=== PATIENT | male | born 1970 | race Caucasian/White ===

== ENCOUNTER 2016-11-25 10:56 | Emergency (ER) | payer OTHER ==
[2016-11-25 11:41] LABS: Basophils % (Auto) 0.6 % (0.0-1.8); Eosinophils % (Auto) 2.1 % (0.0-4.3); Hematocrit 51.5 % (35.5-45.6); Hemoglobin 17.8 gm/dl (11.8-15.2); Mean Corpuscular HGB Conc 35 % (32-34); Mean Corpuscular Hemoglobin 32 pg (28-32); Mean Corpuscular Volume 94 fl (84-94); Red Blood Count 5.49 M/mm3 (3.65-5.03); Red Cell Distribution Width 13.1 % (13.2-15.2); White Blood Count 6.1 K/mm3 (4.5-11.0)
[2016-11-25 11:47] LABS: Platelet Count 84 K/mm3 (140-440)
[2016-11-25 12:01] LABS: Alanine Aminotransferase 73 units/L (7-56); Albumin 3.8 g/dL (3.9-5); Albumin/Globulin Ratio 0.9 %; Alkaline Phosphatase 111 units/L (35-129); Anion Gap 14 mmol/L; Bilirubin,Total 1.7 mg/dL (0.1-1.2); Blood Urea Nitrogen 9 mg/dL (9-20); Calcium 8.8 mg/dL (8.4-10.2); Carbon Dioxide 24 mmol/L (22-30); Chloride 103.4 mmol/L (98-107); Glucose 135 mg/dL (75-100); Lipase 31 units/L (13-60); Potassium 3.6 mmol/L (3.6-5.0); Sodium 138 mmol/L (137-145); Total Protein 7.9 g/dL (6.3-8.2)
[2016-11-25 14:01] VITALS: BP 184/102
--- NOTE | 2016-11-25 14:17 | Emergency Department Report ---
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 He is previously unknown to me. He presents to the ER with abdominal pushing and discomfort for the past 6-7 years. It is primarily in the right upper quadrant. It does not radiate anywhere. No nausea , vomiting or diarrhea. No chest pain or shortness of breath. No testicular pain. No irritative or obstructive urinary symptoms. Symptoms have exacerbating or relieving factors. They're not acutely worsen today. He came in because his mother wanted him to come in today. Patient admits to recreationally consuming alcohol. -: year(s) Location: abdomen Radiation: non-radiation Severity scale (0 -10): 0 Quality: other (per hpi) Consistency: intermittent Improves with: none Worsens with: none Associated Symptoms: denies: confusion, chest pain, cough, diaphoresis, fever/ chills, headaches, loss of appetite, malaise, nausea/vomiting, rash, seizure, shortness of breath, syncope, weakness - Related Data Allergies Allergy/AdvReac Type Severity Reaction Status Date / Time No Known Allergies Allergy Unverified 11/25/16 11:15 ED Review of Systems ROS: Stated complaint: HERNIA PAIN Other details as noted in HPI Constitutional: denies: malaise Eyes: denies: vision change ENT: denies: epistaxis Respiratory: denies: cough Cardiovascular: denies: chest pain Gastrointestinal: denies: nausea, vomiting, diarrhea, constipation, hematemesis , melena Genitourinary: denies: urgency, dysuria Musculoskeletal: denies: back pain Skin: denies: rash, lesions Neurological: denies: headache, weakness Psychiatric: denies: anxiety ED Past Medical Hx - Past Medical History Hx Hypertension: Yes Hx CVA: Yes ("SMALL STROKE" 2003) Hx Diabetes: Yes Hx Psychiatric Treatment: Yes (ANXIETY) Hx Asthma: Yes (CHILD) Additional medical history: HERNIA. HIGH CHOLESTEROL - Surgical History Additional Surgical History: TONSILLECTOMY. LEFT ELBOW - Social History Smoking Status: Never Smoker Substance Use Type: Alcohol ED Physical Exam - General Limitations: Language Barrier General appearance: alert, in no apparent distress - Head Head exam: Present: atraumatic, normocephalic - Eye Eye exam: Present: normal appearance, EOMI. Absent: nystagmus - ENT ENT exam: Present: normal exam, normal orophraynx, mucous membranes moist, normal external ear exam - Neck Neck exam: Present: normal inspection, full ROM. Absent: tenderness, meningismus - Respiratory Respiratory exam: Present: normal lung sounds bilaterally. Absent: respiratory distress, wheezes, rales, rhonchi, stridor, chest wall tenderness, accessory muscle use, decreased breath sounds, prolonged expiratory - Cardiovascular Cardiovascular Exam: Present: regular rate, normal rhythm, normal heart sounds. Absent: bradycardia, tachycardia, irregular rhythm, systolic murmur, diastolic murmur, rubs, gallop - GI/Abdominal GI/Abdominal exam: Present: soft, normal bowel sounds. Absent: distended, tenderness, guarding, rebound, rigid, pulsatile mass - Rectal Rectal exam: Present: deferred - Extremities Exam Extremities exam: Present: normal inspection, full ROM, normal capillary refill. Absent: tenderness, pedal edema, joint swelling, calf tenderness - Back Exam Back exam: Present: normal inspection, full ROM. Absent: tenderness, CVA tenderness (R), CVA tenderness (L), muscle spasm, paraspinal tenderness, vertebral tenderness - Neurological Exam Neurological exam: Present: alert, normal gait, other (Extraocular movements intact. Tongue midline. No facial droop. Facial sensation intact to light touch in the V1, V2, V3 distribution bilaterally. 5 and 5 strength in 4 extremities.. Sensation is intact to light touch in 4 extremities.). Absent: motor sensory deficit - Psychiatric Psychiatric exam: Present: normal affect, normal mood - Skin Skin exam: Present: warm, other (on the anterior abdominal wall, there are areas of hyperpigmentation, there is no active cellulitis, redness, pus, streaking or crepitus.) ED Course Vital Signs 11/25/16 11/25/16 11:00 14:00 Temperature 98.2 F Pulse Rate 93 H 90 Respiratory 19 18 Rate Blood Pressure 168/110 Blood Pressure 184/102 [Left] O2 Sat by Pulse 100 99 Oximetry - Reevaluation(s) Reevaluation #1: 11/25/16 14:15 Differential diagnosis: GERD, gastritis, pancreatitis, biliary colic, hepatitis , chronic abdominal discomfort Assessment and plan: 45-year-old male with reported history of years of abdominal pushing in the right upper quadrant. He is afebrile with reassuring vital signs, with absolutely no abdominal tenderness, rebound, guarding. There is a negative Rivero sign. He is tolerating liquid feeds. Nonspecific elevation in liver function tests are noted, patient is a recreational alcoholic. Given lack of fever, lack of tenderness, chronicity of symptoms, I don't believe he requires emergent imaging from the perspective of the emergency room. He is instructed using a online program coordinator to discontinue alcohol consumption, refrain from acetaminophen consumption, and to closely follow up with an outpatient primary care doctor for elevated blood pressure and nonspecific transaminitis. He was given discharge instructions with a online program coordinator, and counseled to closely follow up with outpatient primary care. Reevaluation #2: 11/25/16 14:19 Elevated blood pressure is appreciated. This is incidental, and asymptomatic. The patient is instructed to closely follow up with an outpatient primary care doctor for this. ED Medical Decision Making - Lab Data Result diagrams: 11/25/16 11:27 11/25/16 11:27 Vital Signs 11/25/16 11/25/16 11:00 14:00 Temperature 98.2 F Pulse Rate 93 H 90 Respiratory 19 18 Rate Blood Pressure 168/110 Blood Pressure 184/102 [Left] O2 Sat by Pulse 100 99 Oximetry Lab Results 11/25/16 11/25/16 11/25/16 Range/Units 11:12 11:27 11:27 WBC 6.1 (4.5-11.0) K/mm3 RBC 5.49 H (3.65-5.03) M/mm3 Hgb 17.8 H (11.8-15.2) gm/dl Hct 51.5 H (35.5-45.6) % MCV 94 (84-94) fl MCH 32 (28-32) pg MCHC 35 H (32-34) % RDW 13.1 L (13.2-15.2) % Plt Count 84 L (140-440) K/mm3 Lymph % (Auto) 21.5 (13.4-35.0) % [place] % (Auto) 8.0 H (0.0-7.3) % Eos % (Auto) 2.1 (0.0-4.3) % Baso % (Auto) 0.6 (0.0-1.8) % Lymph # 1.3 (1.2-5.4) K/mm3 [place] # 0.5 (0.0-0.8) K/mm3 Eos # 0.1 (0.0-0.4) K/mm3 Baso # 0.0 (0.0-0.1) K/mm3 Seg Neutrophils % 67.8 (40.0-70.0) % Seg Neutrophils # 4.2 (1.8-7.7) K/mm3 Sodium 138 (137-145) mmol/L Potassium 3.6 (3.6-5.0) mmol/L Chloride 103.4 (98-107) mmol/L Carbon Dioxide 24 (22-30) mmol/L Anion Gap 14 mmol/L BUN 9 (9-20) mg/dL Creatinine 0.6 L (0.8-1.5) mg/dL Estimated GFR > 60 ml/min BUN/Creatinine Ratio 15.00 % Glucose 135 H (75-100) mg/dL POC Glucose 110 H (70-105) Calcium 8.8 (8.4-10.2) mg/dL Total Bilirubin 1.7 H (0.1-1.2) mg/dL AST 78 H (5-40) units/L ALT 73 H (7-56) units/L Alkaline Phosphatase 111 (35-129) units/L Total Protein 7.9 (6.3-8.2) g/dL Albumin 3.8 L (3.9-5) g/dL Albumin/Globulin Ratio 0.9 % Lipase 31 (13-60) units/L Critical care attestation.: If time is entered above; I have spent that time in minutes in the direct care of this critically ill patient, excluding procedure time. ED Disposition Clinical Impression: Elevated blood pressure, Transaminitis Disposition: DISCHARGED TO HOME OR SELFCARE Is pt being admited?: No Does the pt Need Aspirin: No Condition: Stable Instructions: Hypertension (ED) Additional Instructions: Follow-up with a primary care doctor within the next 2-3 weeks. Laboratory studies indicated nonspecific elevation in liver function tests. Do not consume alcohol, or acetaminophen. Dr. Frausto is a local primary care doctor. [facility] is a local medical clinic. In addition, blood pressure was elevated. This should be followed up by a primary care doctor within the recommended timeframe. Long-term complications of elevated blood pressure include stroke, heart attack, disability, , paralysis, permanent loss of quality of life. Therefore, it is very important to follow-up with an outpatient primary care doctor to further evaluate, manage and treat her elevated blood pressure. Return to the ER right away with new pain, worsened pain, migration of pain, fevers or chills, intractable nausea or vomiting, inability to tolerate liquid feeds, new, worsening or different symptoms. Seguir con un mdico de atencin primaria dentro de las prximas 2-3 semanas. Los estudios de laboratorio indicaron patience elevacin inespecfica en las pruebas de funcin heptica. No consuma alcohol o acetaminofeno. El Dr. Frausto es un mdico local de atencin primaria. La clnica del lado apurva es patience clnica mdica local. Volver a la urgencia con dolor nuevo, dolor agravado, migracin de dolor, fiebre o escalofros, nuseas o vmitos intratables, incapacidad para tolerar alimentos lquidos, sntomas nuevos, empeorados o diferentes. Adems, la presin arterial fue elevada. [place] debe ser seguido por un mdico de atencin primaria dentro del plazo recomendado. Las complicaciones a marty plazo de la presin arterial elevada incluyen accidente cerebrovascular, ataque al corazn, discapacidad, muerte, parlisis, prdida permanente de la calidad de wilbert. Por lo tanto, es muy importante el seguimiento con un mdico ambulatorio de atencin primaria para evaluar, manejar y tratar fleming presin arterial elevada. Referrals: PRIMARY CAREMD [Primary Care Provider] - 3-5 Days KAUSHIK FRAUSTO MD [Staff Physician] - 3-5 Days [facility] [Provider Group] - 3-5 Days
[2016-11-25 14:22] LABS: Bacteria,Urine 1+ /HPF (Negative); Bilirubin,Urine NEG (Negative); Blood,Urine NEG (Negative); Ketones,Urine NEG (Negative); Leukocyte Esterase,Urine NEG (Negative); Mucus,Urine 2+ /HPF; Nitrite,Urine NEG (Negative); Protein,Urine <15 mg/dL mg/dL (Negative); WBC,Urine < 1.0 /HPF (0.0-6.0)
== END 2016-11-25 14:53 | disposition home or self-care (01) ==
LOC: ED 10:56
DX: I10 Essential (primary) hypertension (principal); R74.0 Nonspecific elevation of levels of transaminase and lactic acid dehydrogenase [LDH]; I63.9 Cerebral infarction, unspecified; E11.9 Type 2 diabetes mellitus without complications; F41.9 Anxiety disorder, unspecified; J45.909 Unspecified asthma, uncomplicated; E78.00 Pure hypercholesterolemia, unspecified
CPT/HCPCS: 36415; 80053; 81001; 82962; 83690; 85025; 99283

== ENCOUNTER 2020-10-07 10:08 | Inpatient (IN) | payer OTHER ==
[2020-10-07] MEDS ORDERED: oxyCODONE /ACETAMINOPHEN 5-325MG TAB PO ONE (10:36)
[2020-10-07] MEDS ORDERED: SODIUM CHLORIDE 0.9% 1000 ML 1,000 ML IV ONE (10:36)
[2020-10-07] MEDS ORDERED: ONDANSETRON 4 MG ODT TAB PO ONE (10:36)
--- NOTE | 2020-10-07 10:53 | Emergency Department Report ---
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 he states he has pain in his calf. he denies being bit by anything, injury, or scratches to the leg. he denies any recent travel or surgery. he denies any CP or SOB. he states that two days ago he ate from a portuguese restaurant and later that night had approximately 6 episodes of vomiting. he states the vomiting has completely resolved. he denies any diarrh ea, abd pain, fever, hematochezia, hematemesis, melana. PMHx HTN and DM. no allergies to meds - Related Data Allergies Allergy/AdvReac Type Severity Reaction Status Date / Time No Known Allergies Allergy Unverified 11/25/16 11:15 ED Review of Systems Comment: All other systems reviewed and negative ED Past Medical Hx - Past Medical History Hx Hypertension: Yes Hx CVA: Yes ("SMALL STROKE" 2003) Hx Diabetes: Yes Hx Psychiatric Treatment: Yes (ANXIETY) Hx Asthma: Yes (CHILD) Additional medical history: HERNIA. HIGH CHOLESTEROL - Surgical History Additional Surgical History: TONSILLECTOMY. LEFT ELBOW - Social History Smoking Status: Never Smoker Substance Use Type: Alcohol ED Physical Exam - General Limitations: No Limitations General appearance: alert, in no apparent distress - Head Head exam: Present: atraumatic, normocephalic - Eye Eye exam: Present: normal appearance - ENT ENT exam: Present: mucous membranes moist - Respiratory Respiratory exam: Present: normal lung sounds bilaterally. Absent: respiratory distress, wheezes, rales, rhonchi, stridor, chest wall tenderness, accessory muscle use, decreased breath sounds, prolonged expiratory - Cardiovascular Cardiovascular Exam: Present: normal rhythm, tachycardia, normal heart sounds. Absent: systolic murmur, diastolic murmur, rubs, gallop - Neurological Exam Neurological exam: Present: alert, oriented X3 - Psychiatric Psychiatric exam: Present: normal affect, normal mood - Skin Skin exam: Present: warm, dry, other (there is erythema, edema and increased warmth present to the RLE, it invovles the right crooks, right calf and stops at t he ankle, there is a small streak of erythema extending up to the upper thigh, 2+ distal pulses, sensation intact, no obvious wounds) ED Course - Reevaluation(s) Reevaluation #1: 10/07/20 12:21 called US regarding delay in US [place] [facility] is going to take patient - Consultations Consultation #1: 10/07/20 12:47 Dr. Crandall, ER attending spoke with Dr. Zaidi, hospitalist regarding patient, Dr Zaidi will evaluate pt in the ED ED Medical Decision Making - Lab Data Result diagrams: 10/07/20 10:55 10/07/20 10:55 Lab Results 10/07/20 10/07/20 10/07/20 Range/Units 10:55 10:55 10:55 WBC 14.4 H (4.5-11.0) K/mm3 RBC 5.05 H (3.65-5.03) M/mm3 Hgb 16.9 H (11.8-15.2) gm/dl Hct 47.7 H (35.5-45.6) % MCV 94 (84-94) fl MCH 34 H (28-32) pg MCHC 35 H (32-34) % RDW 12.8 L (13.2-15.2) % Plt Count 62 L (140-440) K/mm3 Lymph % (Auto) 7.1 L (13.4-35.0) % [place] % (Auto) 10.9 H (0.0-7.3) % Eos % (Auto) 0.0 (0.0-4.3) % Baso % (Auto) 0.3 (0.0-1.8) % Lymph # (Auto) 1.0 L (1.2-5.4) K/mm3 [place] # (Auto) 1.6 H (0.0-0.8) K/mm3 Eos # (Auto) 0.0 (0.0-0.4) K/mm3 Baso # (Auto) 0.0 (0.0-0.1) K/mm3 Seg Neutrophils % 81.7 H (40.0-70.0) % Seg Neutrophils # 11.8 H (1.8-7.7) K/mm3 Sodium 129 L (137-145) mmol/L Potassium 3.2 L (3.6-5.0) mmol/L Chloride 98.2 (98-107) mmol/L Carbon Dioxide 22 (22-30) mmol/L Anion Gap 12 mmol/L BUN 12 (9-20) mg/dL Creatinine 0.6 L (0.8-1.3) mg/dL Estimated GFR > 60 ml/min BUN/Creatinine Ratio 20 % Glucose 188 H (75-100) mg/dL Lactic Acid 2.50 H* (0.7-2.0) mmol/L Calcium 8.2 L (8.4-10.2) mg/dL Total Bilirubin 2.70 H (0.1-1.2) mg/dL AST 66 H (5-40) units/L ALT 58 H (7-56) units/L Alkaline Phosphatase 79 (35-129) units/L Total Protein 7.1 (6.3-8.2) g/dL Albumin 3.3 L (3.9-5) g/dL Albumin/Globulin Ratio 0.9 % - Radiology Data Radiology results: report reviewed Ordering Physician: FELICITA CHAVEZ Date of Service: 10/07/20 Procedure(s): VL venous duplex LE RT Accession Number(s): [id number] cc: FELICITA CHAVEZ DUPLEX DOPPLER LOWER EXTREMITY VEINS, RIGHT INDICATION / CLINICAL INFORMATION: RLE edema, erythema, pain. TECHNIQUE: Duplex doppler imaging was performed through the veins of the right lower extremity using venous compression and other maneuvers. COMPARISON: None available. FINDINGS: RIGHT COMMON FEMORAL VEIN: Negative. RIGHT FEMORAL VEIN: Negative. RIGHT POPLITEAL VEIN: Negative. RIGHT CALF VEINS: Negative. ADDITIONAL FINDINGS: None. IMPRESSION: 1. No sonographic evidence for DVT in the right lower extremity. Signer Name: Kate Ross MD Signed: 10/07/2020 12:40 PM Workstation Name: [id number] Transcribed By: RH Dictated By: KATE ROSS III Electronically Authenticated By: KATE ROSS III Signed Date/Time: 10/07/20 1240 DD/ 1239 TD/TT: ED Disposition Clinical Impression: Lactic acidosis, Hyponatremia, Hypokalemia, Thrombocytopenia Cellulitis Qualifiers: Site of cellulitis: extremity Site of cellulitis of extremity: lower extremity Laterality: right Qualified Code(s): L03.115 - Cellulitis of right lower limb Leukocytosis Qualifiers: Leukocytosis type: unspecified Qualified Code(s): D72.829 - Elevated white bl ood cell count, unspecified Disposition: OP ADMIT IP TO THIS HOSP Is pt being admited?: Yes Does the pt Need Aspirin: No Condition: Fair Referrals: PRIMARY CARE, [Primary Care Provider] - 3-5 Days Time of Disposition: 12:48 Print Language: LUX[place]BOURGISH <ALAN CRANDALL - Last Filed: 10/07/20 13:15> ED Review of Systems ROS: Stated complaint: VOMITING Other details as noted in HPI ED Course Vital Signs 10/07/20 10:14 Temperature 99.4 F Pulse Rate 109 H Respiratory 20 Rate Blood Pressure 147/92 O2 Sat by Pulse 96 Oximetry ED Medical Decision Making - Lab Data Result diagrams: 10/07/20 10:55 10/07/20 10:55 - Medical Decision Making I also directly examined and evaluated patient in ED. Right leg with confluent right pink cellulitic rash to the lower leg below the knee sparing the foot. 2+ DP pulse. Streaking of cellulitic rash of the medial thigh. Patient has elevated heart rate, leukocytosis, elevated lactic acid and is immunocompromise due to diabetes. Patient also has mild hypokalemia and hyponatremia. Patient received 1 dose of IV vancomycin, 30 mL/kg bolus of normal saline, and p.o. potassium. No crepitus on examination. DVT study negative. Case discussed with Dr. Zaidi hospitalist for admission Patient is also noted to have thrombocytopenia. Patient has chronic thrombocytopenia with a platelet count in the 80 as per previous chart previous medical record Critical care attestation.: If time is entered above; I have spent that time in minutes in the direct care of this critically ill patient, excluding procedure time.
[2020-10-07] MEDS ORDERED: VANCOMYCIN PHARMACY TO DOSE IV SCH (11:00)
[2020-10-07 11:23] LABS: Basophils % (Auto) 0.3 % (0.0-1.8); Lymphocytes % (Auto) 7.1 % (13.4-35.0); Mean Corpuscular HGB Conc 35 % (32-34); Mean Corpuscular Volume 94 fl (84-94); Monocytes # (Auto) 1.6 K/mm3 (0.0-0.8); Monocytes % (Auto) 10.9 % (0.0-7.3); Red Blood Count 5.05 M/mm3 (3.65-5.03); Red Cell Distribution Width 12.8 % (13.2-15.2)
[2020-10-07 11:24] LABS: Hematocrit 47.7 % (35.5-45.6); Hemoglobin 16.9 gm/dl (11.8-15.2)
[2020-10-07 11:25] LABS: Platelet Count 62 K/mm3 (140-440)
[2020-10-07] MEDS ORDERED: VANCOMYCIN 2,000 MG in SODIUM CHLORIDE 0.9% 500 ML 500 ML IV ONE (11:30)
[2020-10-07] MEDS ORDERED: SODIUM CHLORIDE 0.9% 1000 ML IV SOLN IV ONE (11:42)
[2020-10-07 11:53] LABS: Alanine Aminotransferase 58 units/L (7-56); Albumin 3.3 g/dL (3.9-5); BUN/Creatinine Ratio 20; Blood Urea Nitrogen 12 mg/dL (9-20); Calcium 8.2 mg/dL (8.4-10.2); Hemolysis Index 8
[2020-10-07] MEDS ORDERED: POTASSIUM CHLORIDE ER 20 MEQ TAB PO ONE (12:13)
--- NOTE | 2020-10-07 12:44 | Vascular Lab Report ---
DUPLEX DOPPLER LOWER EXTREMITY VEINS, RIGHT INDICATION / CLINICAL INFORMATION: RLE edema, erythema, pain. TECHNIQUE: Duplex doppler imaging was performed through the veins of the right lower extremity using venous comp ression and other maneuvers. COMPARISON: None available. FINDINGS: RIGHT COMMON FEMORAL VEIN: Negative. RIGHT FEMORAL VEIN: Negative. RIGHT POPLITEAL VEIN: Negative. RIGHT CALF VEINS: Negative. ADDITIONAL FINDINGS: None. IMPRESSION: 1. No sonographic evidence for DVT in the right lower extremity. Signer Name: Bakari Ross MD Signed: 10/07/2020 12:40 PM Workstation Name: [id number]
--- NOTE | 2020-10-07 13:12 | History and Physical Report ---
History of Present Illness Chief complaint: My leg is red, and it hurts History of present illness: 49 YO Male with DM, CVA, Anxiety, HLD, Obesity presents to ED for evaluation. Pt reports "my leg is red". Pt states that he has experienced redness and pain to his right lower leg over the past 1 day with persistent symptoms over the same timeframe. Patient transported to [facility] via private vehicle for further care and evaluation of the aforementioned symptoms. The patient was seen and evaluated in the emergency department. All lab and imaging studies reviewed. Patient found to have right lower extremity cellulitis complicated by systemic inflammatory response syndrome. Patient placed in observation status and admitted to medical floor. Patient treated with IV antibiotic therapy. Patient denies fever, chills, chest pain, palpitation, productive cough, skin rash, recent ill contacts, trauma, prolonged travel/immobility, individual/family history of DVT/PE/bleeding/blood clotting disorders. No prior admission for review. No medication listed at time of admission for reconciliation. Past History Past Medical History: diabetes, hyperlipidemia, stroke, other (See HPI) Past Surgical History: tonsillectomy, Other (Left elbow surgery) Social history: Family history: diabetes, hypertension Medications and Allergies Allergies Allergy/AdvReac Type Severity Reaction Status Date / Time No Known Allergies Allergy Unverified 11/25/16 11:15 Active Meds: Active Medications Acetaminophen (Acetaminophen 325 Mg Tab) 650 mg PO Q4H PRN PRN Reason: Pain MILD(1-3)/Fever >100.5/HARPER Vancomycin HCl 2,000 mg/ (Sodium Chloride) 540 mls @ 250 mls/hr IV ONCE ONE Stop: 10/07/20 13:39 Last Admin: 10/07/20 11:50 Dose: 250 mls/hr Documented by: Vancomycin HCl 1,500 mg/ (Sodium Chloride) 530 mls @ 333.333 mls/hr IV Q12H RL Ondansetron HCl (Ondansetron 4 Mg/2 Ml Inj) 4 mg IV Q8H PRN PRN Reason: Nausea And Vomiting Sodium Chloride (Sodium Chloride 0.9% 10 Ml Flush Syringe) 10 ml IV BID RL Sodium Chloride (Sodium Chloride 0.9% 10 Ml Flush Syringe) 10 ml IV PRN PRN PRN Reason: LINE FLUSH Review of Systems Constitutional: no weight loss, no fever, no sweats Ears, nose, mouth and throat: no ear pain, no ear discharge, no decreased hea ring, no nasal congestion, no sinus pressure Cardiovascular: no chest pain, no palpitations, no rapid/irregular heart beat, no edema, no syncope Respiratory: no cough, no dyspnea on exertion Gastrointestinal: no abdominal pain, no vomiting, no diarrhea, no constipation, no change in bowel habits, no hematemesis Genitourinary Male: no dysuria, no hematuria, no flank pain, no urinary frequency, no urinary hesitancy, no erectile dysfunction Rectal: no pain, no incontinence, no bleeding Musculoskeletal: no shooting arm pain, no arm numbness/tingling, no low back pain, no shooting leg pain Integumentary: rash, other (Right lower extremity) Neurological: no transient paralysis, no weakness, no parathesias, no tingling, no seizures, no syncope Psychiatric: no anxiety, no change in sleep habits, no sleep disturbances, no hypersomnia, no change in libido, no suicidal ideation, no disorientation, no hallucinations Endocrine: no cold intolerance, no polyphagia, no excessive thirst, no polydipsia, no nocturia, no excessive sweating Hematologic/Lymphatic: no easy bruising, no easy bleeding Allergic/Immunologic: no urticaria, no wheezing Exam - Constitutional Vitals: Temp Pulse Resp BP Pulse Ox 99.4 F 109 H 20 147/92 96 10/07/20 10:14 10/07/20 10:14 10/07/20 10:14 10/07/20 10:14 10/07/20 10:14 General appearance: Present: mild distress - EENT Eyes: Present: PERRL ENT: hearing intact, clear oral mucosa - Neck Neck: Present: supple, normal ROM - Respiratory Respiratory effort: normal Respiratory: bilateral: CTA - Cardiovascular Heart Sounds: Present: S1 & S2. Absent: rub, click - Extremities Extremities: pulses symmetrical Extremity abnormal: erythema, other (Right lower extremity, no crepitus, no fluctuance,) Peripheral Pulses: within normal limits - Abdominal General gastrointestinal: Present: soft, non-tender, non-distended, normal bowel sounds Male genitourinary: Present: normal - Integumentary Integumentary: Present: clear, warm, dry - Musculoskeletal Musculoskeletal: gait normal, strength equal bilaterally - Psychiatric Psychiatric: appropriate mood/affect, intact judgment & insight - Neurologic Neurologic: CNII-XII intact, moves all extremities Results - Labs CBC & Chem 7: 10/07/20 10:55 10/07/20 10:55 Labs: Abnormal lab results 10/07/20 10/07/20 10/07/20 Range/Units 10:55 10:55 10:55 WBC 14.4 H (4.5-11.0) K/mm3 RBC 5.05 H (3.65-5.03) M/mm3 Hgb 16.9 H (11.8-15.2) gm/dl Hct 47.7 H (35.5-45.6) % MCH 34 H (28-32) pg MCHC 35 H (32-34) % RDW 12.8 L (13.2-15.2) % Plt Count 62 L (140-440) K/mm3 Lymph % (Auto) 7.1 L (13.4-35.0) % [place] % (Auto) 10.9 H (0.0-7.3) % Lymph # (Auto) 1.0 L (1.2-5.4) K/mm3 [place] # (Auto) 1.6 H (0.0-0.8) K/mm3 Seg Neutrophils % 81.7 H (40.0-70.0) % Seg Neutrophils # 11.8 H (1.8-7.7) K/mm3 Sodium 129 L (137-145) mmol/L Potassium 3.2 L (3.6-5.0) mmol/L Creatinine 0.6 L (0.8-1.3) mg/dL Glucose 188 H (75-100) mg/dL Lactic Acid 2.50 H* (0.7-2.0) mmol/L Calcium 8.2 L (8.4-10.2) mg/dL Total Bilirubin 2.70 H (0.1-1.2) mg/dL AST 66 H (5-40) units/L ALT 58 H (7-56) units/L Albumin 3.3 L (3.9-5) g/dL Assessment and Plan - Patient Problems (1) Systemic inflammatory response syndrome Current Visit: Yes Status: Acute Plan to address problem: CBC, BMP, IV antibiotic therapy, supportive care. (2) Diabetes Current Visit: Yes Status: Acute Plan to address problem: Consistent carbohydrate diet, sliding scale insulin therapy, Accu-Chek, hypoglycemia protocol. (3) Obesity Current Visit: Yes Status: Acute Qualifiers: Body mass index: BMI 31.0-31.9 Plan to address problem: Balanced diet, increase physical activity at discharge. (4) Cellulitis Current Visit: Yes Status: Acute Qualifiers: Site of cellulitis: extremity Site of cellulitis of extremity: lower extremity Laterality: right Qualified Code(s): L03.115 - Cellulitis of right lower limb Plan to address problem: CBC, BMP, IV antibiotic therapy, supportive care. (5) Thrombocytopenia Current Visit: Yes Status: Acute Plan to address problem: Chronic, supportive care, repeat CBC in a.m. No active bleeding at this time. (6) DVT prophylaxis Current Visit: Yes Status: Acute Plan to address problem: SCD to bilateral extremities while in bed, patient is ambulatory.
[2020-10-07] MEDS ORDERED: DEXTROSE 50% IN WATER (25GM) 50 ML SYRINGE IV PRN (13:30)
[2020-10-07] MEDS ORDERED: ACETAMINOPHEN 325 MG TAB PO PRN (13:30)
[2020-10-07] MEDS ORDERED: ONDANSETRON 4 MG/2 ML INJ IV PRN (14:00)
[2020-10-07] MEDS: INSULIN REGULAR, HUMAN 100 UNITS/1 ML SUB-Q SCH ×2 (22:40→22:56)
[2020-10-08] MEDS ORDERED: VANCOMYCIN 1,500 MG in SODIUM CHLORIDE 0.9% 500 ML 500 ML IV SCH
[2020-10-08] MEDS: INSULIN REGULAR, HUMAN 100 UNITS/1 ML SUB-Q SCH ×5 (04:06→22:25)
[2020-10-08] MEDS: oxyCODONE /ACETAMINOPHEN 5-325MG TAB PO PRN ×3 (06:07→22:52)
[2020-10-08 06:10] LABS: Blood Urea Nitrogen 9 mg/dL (9-20); Calcium 7.6 mg/dL (8.4-10.2); Hemolysis Index 9
[2020-10-08 06:21] LABS: BUN/Creatinine Ratio 18
[2020-10-08] MEDS ORDERED: amLODIPine 5 MG TAB PO SCH (08:00)
[2020-10-08] MEDS ORDERED: CEFEPIME/NS 2 GM/100 ML 2 GM/100 ML BAG IV SCH (08:00)
[2020-10-08] MEDS ORDERED: amLODIPine 5 MG TAB PO NR (12:01)
[2020-10-08] MEDS: hydrALAZINE 20 MG/1 ML INJ IV PRN ×3 (12:20→22:53)
[2020-10-08] MEDS: cefTRIAXone/NS 1 GM/50 ML 1 GM/50 ML BAG IV SCH (16:29)
--- NOTE | 2020-10-08 19:38 | Progress Note ---
Assessment and Plan Assessment and plan: Sepsis -Presented with leukocytosis, lactic acidosis, tachycardia, right lower extremity cellulitis -Antibiotic therapy -10/07 blood cultures x2 no growth to date -S/p 2900 mL normal saline in the ED -S/p vancomycin in the ED Right lower extremity cellulitis -Antibiotic therapy -MIVF -Supportive care -10/08 right lower extremity venous Doppler ultrasound shows no acute DVT or SVT Leukocytosis -Presented with a WBC of 14.4 -Antibiotic therapy -Trend CBC Thrombocytopenia -11/25/2016 platelets 84 -Presented with platelets of 62 -Trend CBC -Initiate bleeding precautions when appropriate Hyponatremia -Presented with a sodium of 129 -10/08 sodium 133 -Trend sodium -MIVF -Avoid rapid correction Transaminitis -Presented with a total bilirubin of 2.7, AST 66, ALT 58, alkaline phos 79 -Trend LFTs -MIVF -Patient denies any history of EtOH abuse (states he only drinks recreationally) Diabetes mellitus -No home antidiabetic regimen listed in home medication list -10/08 hemoglobin A1c pending -SSI -Accu-Cheks AC at bedtime -Hypoglycemia protocol Hypertension -Resume home antihypertensive regimen -Blood pressure monitor per protocol -Hydralazine 10 mg IV as needed for SBP greater than 160 Anxiety -Supportive care Obesity -Encourage dietary and lifestyle modifications outpatient Hyperlipidemia (?) -Patient has a history of CVA, diabetes and is obese -10/08 lipid panel pending -No statin therapy listed on home medication list CVA, old (2003) -Supportive care Lactic acidosis, resolved -Presented with a lactic acid of 2.7 serial lactic acids: 2.1, 2.7, 1.6 -MIVF Hypokalemia, resolved -Presented with a potassium of 3.2 -S/p repletion -10/08 potassium 4 History Interval history: This is a 49 YO Male with DM, CVA, Anxiety, HLD, Obesity who presented to the emergency department on 10/08 with redness and pain to his right lower extremity over the past 1 day. Patient was found to have right lower extremity cellulitis complicated by systemic vomiting response syndrome. Patient was initiated antibiotic therapy. 10/08 antibiotic therapy changed to ceftriaxone, WOCN consulted. Patient home medications reconciled. No acute events reported overnight. Hospitalist Physical - Constitutional Vitals: Temp Pulse Resp BP Pulse Ox 98.4 F 109 H 16 170/105 97 02/09/21 11:53 10/08/20 16:29 10/08/20 11:53 10/08/20 16:29 10/08/20 15:56 General appearance: Present: mild distress Results - Labs CBC & Chem 7: 10/07/20 10:55 10/08/20 05:25 Labs: Laboratory Last Values WBC 14.4 K/mm3 (4.5-11.0) H 10/07/20 10:55 RBC 5.05 M/mm3 (3.65-5.03) H 10/07/20 10:55 Hgb 16.9 gm/dl (11.8-15.2) H 10/07/20 10:55 Hct 47.7 % (35.5-45.6) H 10/07/20 10:55 MCV 94 fl (84-94) 10/07/20 10:55 MCH 34 pg (28-32) H 10/07/20 10:55 MCHC 35 % (32-34) H 10/07/20 10:55 RDW 12.8 % (13.2-15.2) L 10/07/20 10:55 Plt Count 62 K/mm3 (140-440) L 10/07/20 10:55 Lymph % (Auto) 7.1 % (13.4-35.0) L 10/07/20 10:55 [place] % (Auto) 10.9 % (0.0-7.3) H 10/07/20 10:55 Eos % (Auto) 0.0 % (0.0-4.3) 10/07/20 10:55 Baso % (Auto) 0.3 % (0.0-1.8) 10/07/20 10:55 Lymph # (Auto) 1.0 K/mm3 (1.2-5.4) L 10/07/20 10:55 [place] # (Auto) 1.6 K/mm3 (0.0-0.8) H 10/07/20 10:55 Eos # (Auto) 0.0 K/mm3 (0.0-0.4) 10/07/20 10:55 Baso # (Auto) 0.0 K/mm3 (0.0-0.1) 10/07/20 10:55 Seg Neutrophils % 81.7 % (40.0-70.0) H 10/07/20 10:55 Seg Neutrophils # 11.8 K/mm3 (1.8-7.7) H 10/07/20 10:55 Sodium 133 mmol/L (137-145) L 10/08/20 05:25 Potassium 4.0 mmol/L (3.6-5.0) D 10/08/20 05:25 Chloride 103.2 mmol/L (98-107) 10/08/20 05:25 Carbon Dioxide 24 mmol/L (22-30) 10/08/20 05:25 Anion Gap 10 mmol/L 10/08/20 05:25 BUN 9 mg/dL (9-20) 10/08/20 05:25 Creatinine 0.5 mg/dL (0.8-1.3) L 10/08/20 05:25 Estimated GFR > 60 ml/min 10/08/20 05:25 BUN/Creatinine Ratio 18 % 10/08/20 05:25 Glucose 146 mg/dL (75-100) H 10/08/20 05:25 POC Glucose 174 mg/dL (70-105) H 10/08/20 15:54 Lactic Acid 1.60 mmol/L (0.7-2.0) 10/08/20 05:58 Calcium 7.6 mg/dL (8.4-10.2) L 10/08/20 05:25 Total Bilirubin 2.70 mg/dL (0.1-1.2) H 10/07/20 10:55 AST 66 units/L (5-40) H 10/07/20 10:55 ALT 58 units/L (7-56) H 10/07/20 10:55 Alkaline Phosphatase 79 units/L (35-129) 10/07/20 10:55 Total Protein 7.1 g/dL (6.3-8.2) 10/07/20 10:55 Albumin 3.3 g/dL (3.9-5) L 10/07/20 10:55 Albumin/Globulin Ratio 0.9 % 10/07/20 10:55 Microbiology: Microbiology 10/07/20 10:55 Peripheral/Venous Blood Culture - Preliminary NO GROWTH AFTER 24 HOURS 10/07/20 10:55 Peripheral/Venous Blood Culture - Preliminary NO GROWTH AFTER 24 HOURS Bear/IV: Voiding Method Toilet Active Medications - Current Medications Current Medications: Generic Name Dose Route Start Last Admin Trade Name Freq PRN Reason Stop Dose Admin Acetaminophen 650 mg 10/07/20 13:30 Acetaminophen 325 Mg Tab PO Q4H PRN Pain MILD(1-3)/Fever >100.5/HARPER Amlodipine Besylate 10 mg 10/09/20 08:00 Amlodipine 5 Mg Tab PO QDAY RL Dextrose 50 ml 10/07/20 13:30 Dextrose 50% In Water (25gm) 50 Ml Syringe IV Q30MIN PRN Hypoglycemia Protocol Hydralazine HCl 10 mg 10/08/20 12:00 10/08/20 16:29 Hydralazine 20 Mg/1 Ml Inj IV 10 mg Q4HR PRN Administration Hypertension Ceftriaxone Sodium 1 gm in 50 mls @ 100 mls/hr 10/08/20 15:00 10/08/20 16:29 Rocephin/Ns 1 Gm/50 Ml IV 100 mls/hr Q24H RL Administration Protocol Insulin Human Regular 0 units 10/08/20 06:00 10/08/20 17:51 Insulin Regular, Human 100 Units/1 Ml SUB-Q 2 units Q6H RL Administration Protocol Ondansetron HCl 4 mg 10/07/20 14:00 Ondansetron 4 Mg/2 Ml Inj IV Q8H PRN Nausea And Vomiting Oxycodone/Acetaminophen 1 tab 10/08/20 05:47 10/08/20 16:34 Oxycodone /Acetaminophen 5-325mg Tab PO 1 tab Q6H PRN Administration Pain, Moderate (4-6) Sodium Chloride 10 ml 10/07/20 22:00 10/08/20 08:41 Sodium Chloride 0.9% 10 Ml Flush Syringe IV 10 ml BID RL Administration Sodium Chloride 10 ml 10/07/20 13:10 Sodium Chloride 0.9% 10 Ml Flush Syringe IV 10/17/20 13:09 PRN PRN LINE FLUSH
[2020-10-09 05:25] LABS: Hematocrit 48.5 % (35.5-45.6); Hemoglobin 17.1 gm/dl (11.8-15.2); Mean Corpuscular HGB Conc 35 % (32-34); Mean Corpuscular Volume 96 fl (84-94); Red Blood Count 5.05 M/mm3 (3.65-5.03); Red Cell Distribution Width 13.1 % (13.2-15.2)
[2020-10-09 05:27] LABS: Platelet Count 70 K/mm3 (140-440)
[2020-10-09 05:49] LABS: Alanine Aminotransferase 46 units/L (7-56); Albumin 2.9 g/dL (3.9-5); Blood Urea Nitrogen 9 mg/dL (9-20); Calcium 7.9 mg/dL (8.4-10.2); Chol/HDL Ratio 3.41 %; HDL Cholesterol 31 mg/dL (40-59); Hemolysis Index 10; LDL Cholesterol,Direct 56 mg/dL (50-130)
[2020-10-09 05:50] LABS: BUN/Creatinine Ratio 23
[2020-10-09] MEDS: INSULIN REGULAR, HUMAN 100 UNITS/1 ML SUB-Q SCH ×3 (06:25→17:42)
[2020-10-09] MEDS ORDERED: SODIUM CHLORIDE 0.9% 1000 ML 1,000 ML IV SCH (07:30)
[2020-10-09] MEDS ORDERED: amLODIPine 5 MG TAB PO SCH (08:00)
[2020-10-09] MEDS: LISINOPRIL 10 MG TAB PO SCH (08:29)
--- NOTE | 2020-10-09 14:18 | Progress Note ---
<SHIVANIKLAUDIA Jesus ManuelGarry - Last Filed: 10/09/20 14:22> Assessment and Plan Assessment and plan: Sepsis -Presented with leukocytosis, lactic acidosis, tachycardia, right lower extremity cellulitis -Antibiotic therapy -10/07 blood cultures x2 no growth to date -S/p 2900 mL normal saline in the ED -S/p vancomycin in the ED Right lower extremity cellulitis -Antibiotic therapy -s/p MIVF -Supportive care -10/08 right lower extremity venous Doppler ultrasound shows no acute DVT or SVT Thrombocytopenia -11/25/2016 platelets 84 -Presented with platelets of 62 -Trend CBC -Initiate bleeding precautions when appropriate Hyponatremia -Presented with a sodium of 129 -Seems to be chronic form previous visits -Trend sodium -s/p MIVF -Avoid rapid correction Transaminitis -Presented with a total bilirubin of 2.7, AST 66, ALT 58, alkaline phos 79 -Trend LFTs -MIVF -Patient denies any history of EtOH abuse (states he only drinks recreational) -10/09 abdominal ultrasound pending Diabetes mellitus -No home antidiabetic regimen listed in home medication list -10/09 hemoglobin A1c 7.8 -SSI -Accu-Cheks AC at bedtime -Hypoglycemia protocol Hypertension -Resume home antihypertensive regimen -Blood pressure monitor per protocol -Hydralazine 10 mg IV as needed for SBP greater than 160 Anxiety -Supportive care Obesity -Encourage dietary and lifestyle modifications outpatient Hyperlipidemia (?) -Patient has a history of CVA, diabetes and is obese -10/09 lipid panel triglycerides 127, cholesterol 106, LDL 56, HDL 31 -No statin therapy listed on home medication list -ASCVD calculated at 8.7% -Encourage dietary changes and increase in physical activity -f/u with PCP CVA, old (2003) -Supportive care Lactic acidosis, resolved -Presented with a lactic acid of 2.7 serial lactic acids: 2.1, 2.7, 1.6 -s/p MIVF Hypokalemia, resolved -Presented with a potassium of 3.2 -S/p repletion -10/08 potassium 4 Leukocytosis, resolved -Presented with a WBC of 14.4 -Antibiotic therapy -Trend CBC -10/09 WBC 6 History Interval history: This is a 49 YO Male with DM, CVA, Anxiety, HLD, Obesity who presented to the emergency department on 2/9 with redness and pain to his right lower extremity over the past 1 day. Patient was found to have right lower extremity cellulitis complicated by systemic vomiting response syndrome. Patient was initiated antibiotic therapy. 10/08 antibiotic therapy changed to ceftriaxone, WOCN consulted. Patient home medications reconciled. No acute events reported overnight. 10/09: Patient cellulitis has improved, no acute times reported overnight. Patient's LFTs have improved but still are elevated therefore an abdominal ultrasound was ordered. Possible discharge in the a.m. Hospitalist Physical - Constitutional Vitals: Temp Pulse Resp BP Pulse Ox 97.4 F L 91 H 18 161/96 96 10/09/20 11:40 10/09/20 08:29 10/09/20 11:40 10/09/20 11:40 10/09/20 08:16 General appearance: Present: no acute distress - EENT Eyes: Present: PERRL, EOM intact ENT: clear oral mucosa, dentition normal - Neck Neck: Present: normal ROM - Respiratory Respiratory effort: normal Respiratory: bilateral: CTA - Cardiovascular Rhythm: regular Heart Sounds: Present: S1 & S2. Absent: systolic murmur, diastolic murmur - Extremities Extremities: no ischemia, pulses intact, pulses symmetrical, No edema, normal temperature, normal color, Full ROM Peripheral Pulses: within normal limits - Abdominal General gastrointestinal: soft, non-tender, non-distended, normal bowel sounds - Integumentary Integumentary: Present: clear, warm, dry - Psychiatric Psychiatric: cooperative - Neurologic Neurologic: CNII-XII intact, no focal deficits, moves all extremities - Allied Health Allied health notes reviewed: nursing Results - Labs CBC & Chem 7: 10/09/20 04:40 10/09/20 04:40 Labs: Laboratory Last Values WBC 6.3 K/mm3 (4.5-11.0) 10/09/20 04:40 RBC 5.05 M/mm3 (3.65-5.03) H 10/09/20 04:40 Hgb 17.1 gm/dl (11.8-15.2) H 10/09/20 04:40 Hct 48.5 % (35.5-45.6) H 10/09/20 04:40 MCV 96 fl (84-94) H 10/09/20 04:40 MCH 34 pg (28-32) H 10/09/20 04:40 MCHC 35 % (32-34) H 10/09/20 04:40 RDW 13.1 % (13.2-15.2) L 10/09/20 04:40 Plt Count 70 K/mm3 (140-440) L 10/09/20 04:40 Lymph % (Auto) 7.1 % (13.4-35.0) L 10/07/20 10:55 [place] % (Auto) 10.9 % (0.0-7.3) H 10/07/20 10:55 Eos % (Auto) 0.0 % (0.0-4.3) 10/07/20 10:55 Baso % (Auto) 0.3 % (0.0-1.8) 10/07/20 10:55 Lymph # (Auto) 1.0 K/mm3 (1.2-5.4) L 10/07/20 10:55 [place] # (Auto) 1.6 K/mm3 (0.0-0.8) H 10/07/20 10:55 Eos # (Auto) 0.0 K/mm3 (0.0-0.4) 10/07/20 10:55 Baso # (Auto) 0.0 K/mm3 (0.0-0.1) 10/07/20 10:55 Seg Neutrophils % 81.7 % (40.0-70.0) H 10/07/20 10:55 Seg Neutrophils # 11.8 K/mm3 (1.8-7.7) H 10/07/20 10:55 Sodium 130 mmol/L (137-145) L 10/09/20 04:40 Potassium 3.7 mmol/L (3.6-5.0) 10/09/20 04:40 Chloride 99.5 mmol/L (98-107) 10/09/20 04:40 Carbon Dioxide 23 mmol/L (22-30) 10/09/20 04:40 Anion Gap 11 mmol/L 10/09/20 04:40 BUN 9 mg/dL (9-20) 10/09/20 04:40 Creatinine 0.4 mg/dL (0.8-1.3) L 10/09/20 04:40 Estimated GFR > 60 ml/min 10/09/20 04:40 BUN/Creatinine Ratio 23 % 10/09/20 04:40 Glucose 144 mg/dL (75-100) H 10/09/20 04:40 POC Glucose 136 mg/dL (70-105) H 10/09/20 06:05 Hemoglobin A1c 7.8 % (4-6) H 10/09/20 04:40 Lactic Acid 1.60 mmol/L (0.7-2.0) 10/08/20 05:58 Calcium 7.9 mg/dL (8.4-10.2) L 10/09/20 04:40 Total Bilirubin 1.90 mg/dL (0.1-1.2) H 10/09/20 04:40 AST 85 units/L (5-40) H 10/09/20 04:40 ALT 46 units/L (7-56) 10/09/20 04:40 Alkaline Phosphatase 79 units/L (35-129) 10/09/20 04:40 Total Protein 7.0 g/dL (6.3-8.2) 10/09/20 04:40 Albumin 2.9 g/dL (3.9-5) L 10/09/20 04:40 Albumin/Globulin Ratio 0.7 % 10/09/20 04:40 Triglycerides 127 mg/dL (2-149) 10/09/20 04:40 Cholesterol 106 mg/dL (50-199) 10/09/20 04:40 LDL Cholesterol Direct 56 mg/dL (50-130) 10/09/20 04:40 HDL Cholesterol 31 mg/dL (40-59) L 10/09/20 04:40 Cholesterol/HDL Ratio 3.41 % 10/09/20 04:40 Microbiology: Microbiology 10/07/20 10:55 Peripheral/Venous Blood Culture - Preliminary NO GROWTH AFTER 48 HOURS 10/07/20 10:55 Peripheral/Venous Blood Culture - Preliminary NO GROWTH AFTER 48 HOURS Bear/IV: Voiding Method Toilet Active Medications - Current Medications Current Medications: Generic Name Dose Route Start Last Admin Trade Name Freq PRN Reason Stop Dose Admin Acetaminophen 650 mg 10/07/20 13:30 Acetaminophen 325 Mg Tab PO Q4H PRN Pain MILD(1-3)/Fever >100.5/HARPER Dextrose 50 ml 10/07/20 13:30 Dextrose 50% In Water (25gm) 50 Ml Syringe IV Q30MIN PRN Hypoglycemia Protocol Hydralazine HCl 10 mg 10/08/20 12:00 10/08/20 22:53 Hydralazine 20 Mg/1 Ml Inj IV 10 mg Q4HR PRN Administration Hypertension Ceftriaxone Sodium 1 gm in 50 mls @ 100 mls/hr 10/08/20 15:00 10/08/20 20:17 Rocephin/Ns 1 Gm/50 Ml IV Infused Q24H RL Infusion Protocol Sodium Chloride 1,000 mls @ 75 mls/hr 10/09/20 07:30 10/09/20 08:29 Nacl 0.9% 1000 Ml IV 75 mls/hr DIRECT RL Administration Insulin Human Regular 0 units 10/08/20 06:00 10/09/20 11:41 Insulin Regular, Human 100 Units/1 Ml SUB-Q Not Given Q6H RL Protocol Lisinopril 10 mg 10/09/20 08:00 10/09/20 08:29 Lisinopril 10 Mg Tab PO 10 mg QDAY RL Administration Ondansetron HCl 4 mg 10/07/20 14:00 10/08/20 22:55 Ondansetron 4 Mg/2 Ml Inj IV 4 mg Q8H PRN Administration Nausea And Vomiting Sodium Chloride 10 ml 10/07/20 22:00 10/09/20 08:29 Sodium Chloride 0.9% 10 Ml Flush Syringe IV 10 ml BID RL Administration Sodium Chloride 10 ml 10/07/20 13:10 Sodium Chloride 0.9% 10 Ml Flush Syringe IV 10/17/20 13:09 PRN PRN LINE FLUSH <CAMI KAM - Last Filed: 10/09/20 14:56> Hospitalist Physical - Constitutional Vitals: Temp Pulse Resp BP Pulse Ox 97.4 F L 91 H 18 161/96 96 10/09/20 11:40 10/09/20 08:29 10/09/20 11:40 10/09/20 11:40 10/09/20 08:16 Results - Labs CBC & Chem 7: 10/09/20 04:40 10/09/20 04:40 Labs: Laboratory Last Values WBC 6.3 K/mm3 (4.5-11.0) 10/09/20 04:40 RBC 5.05 M/mm3 (3.65-5.03) H 10/09/20 04:40 Hgb 17.1 gm/dl (11.8-15.2) H 10/09/20 04:40 Hct 48.5 % (35.5-45.6) H 10/09/20 04:40 MCV 96 fl (84-94) H 10/09/20 04:40 MCH 34 pg (28-32) H 10/09/20 04:40 MCHC 35 % (32-34) H 10/09/20 04:40 RDW 13.1 % (13.2-15.2) L 10/09/20 04:40 Plt Count 70 K/mm3 (140-440) L 10/09/20 04:40 Lymph % (Auto) 7.1 % (13.4-35.0) L 10/07/20 10:55 [place] % (Auto) 10.9 % (0.0-7.3) H 10/07/20 10:55 Eos % (Auto) 0.0 % (0.0-4.3) 10/07/20 10:55 Baso % (Auto) 0.3 % (0.0-1.8) 10/07/20 10:55 Lymph # (Auto) 1.0 K/mm3 (1.2-5.4) L 10/07/20 10:55 [place] # (Auto) 1.6 K/mm3 (0.0-0.8) H 10/07/20 10:55 Eos # (Auto) 0.0 K/mm3 (0.0-0.4) 10/07/20 10:55 Baso # (Auto) 0.0 K/mm3 (0.0-0.1) 10/07/20 10:55 Seg Neutrophils % 81.7 % (40.0-70.0) H 10/07/20 10:55 Seg Neutrophils # 11.8 K/mm3 (1.8-7.7) H 10/07/20 10:55 Sodium 130 mmol/L (137-145) L 10/09/20 04:40 Potassium 3.7 mmol/L (3.6-5.0) 10/09/20 04:40 Chloride 99.5 mmol/L (98-107) 10/09/20 04:40 Carbon Dioxide 23 mmol/L (22-30) 10/09/20 04:40 Anion Gap 11 mmol/L 10/09/20 04:40 BUN 9 mg/dL (9-20) 10/09/20 04:40 Creatinine 0.4 mg/dL (0.8-1.3) L 10/09/20 04:40 Estimated GFR > 60 ml/min 10/09/20 04:40 BUN/Creatinine Ratio 23 % 10/09/20 04:40 Glucose 144 mg/dL (75-100) H 10/09/20 04:40 POC Glucose 136 mg/dL (70-105) H 10/09/20 06:05 Hemoglobin A1c 7.8 % (4-6) H 10/09/20 04:40 Lactic Acid 1.60 mmol/L (0.7-2.0) 10/08/20 05:58 Calcium 7.9 mg/dL (8.4-10.2) L 10/09/20 04:40 Total Bilirubin 1.90 mg/dL (0.1-1.2) H 10/09/20 04:40 AST 85 units/L (5-40) H 10/09/20 04:40 ALT 46 units/L (7-56) 10/09/20 04:40 Alkaline Phosphatase 79 units/L (35-129) 10/09/20 04:40 Total Protein 7.0 g/dL (6.3-8.2) 10/09/20 04:40 Albumin 2.9 g/dL (3.9-5) L 10/09/20 04:40 Albumin/Globulin Ratio 0.7 % 10/09/20 04:40 Triglycerides 127 mg/dL (2-149) 10/09/20 04:40 Cholesterol 106 mg/dL (50-199) 10/09/20 04:40 LDL Cholesterol Direct 56 mg/dL (50-130) 10/09/20 04:40 HDL Cholesterol 31 mg/dL (40-59) L 10/09/20 04:40 Cholesterol/HDL Ratio 3.41 % 10/09/20 04:40 Procalcitonin 1.98 ng/mL (<0.15) 10/09/20 04:40 Microbiology: Microbiology 10/07/20 10:55 Peripheral/Venous Blood Culture - Preliminary NO GROWTH AFTER 48 HOURS 10/07/20 10:55 Peripheral/Venous Blood Culture - Preliminary NO GROWTH AFTER 48 HOURS Bear/IV: Voiding Method Toilet Active Medications - Current Medications Current Medications: Generic Name Dose Route Start Last Admin Trade Name Osminq PRN Reason Stop Dose Admin Acetaminophen 650 mg 10/07/20 13:30 Acetaminophen 325 Mg Tab PO Q4H PRN Pain MILD(1-3)/Fever >100.5/HARPER Dextrose 50 ml 10/07/20 13:30 Dextrose 50% In Water (25gm) 50 Ml Syringe IV Q30MIN PRN Hypoglycemia Protocol Hydralazine HCl 10 mg 10/08/20 12:00 10/08/20 22:53 Hydralazine 20 Mg/1 Ml Inj IV 10 mg Q4HR PRN Administration Hypertension Ceftriaxone Sodium 1 gm in 50 mls @ 100 mls/hr 10/08/20 15:00 10/09/20 14:40 Rocephin/Ns 1 Gm/50 Ml IV 100 mls/hr Q24H RL Administration Protocol Insulin Human Regular 0 units 10/08/20 06:00 10/09/20 11:41 Insulin Regular, Human 100 Units/1 Ml SUB-Q Not Given Q6H RL Protocol Lisinopril 10 mg 10/09/20 08:00 10/09/20 08:29 Lisinopril 10 Mg Tab PO 10 mg QDAY RL Administration Ondansetron HCl 4 mg 10/07/20 14:00 10/08/20 22:55 Ondansetron 4 Mg/2 Ml Inj IV 4 mg Q8H PRN Administration Nausea And Vomiting Sodium Chloride 10 ml 10/07/20 22:00 10/09/20 08:29 Sodium Chloride 0.9% 10 Ml Flush Syringe IV 10 ml BID RL Administration Sodium Chloride 10 ml 10/07/20 13:10 Sodium Chloride 0.9% 10 Ml Flush Syringe IV 10/17/20 13:09 PRN PRN LINE FLUSH
[2020-10-09] MEDS: cefTRIAXone/NS 1 GM/50 ML 1 GM/50 ML BAG IV SCH (14:40)
--- NOTE | 2020-10-09 17:45 | Ultrasound Report ---
Abdominal ultrasound INDICATION: Elevated bilirubin FINDINGS: Aorta and IVC appear normal. There is heterogeneous with slightly irregular borders. Gallbl adder appears normal. No pericholecystic fluid. Common bile measures 4 mm. Kidneys appear normal with out hydronephrosis. Small cyst is seen in bilateral kidneys. Spleen is enlarged measuring 17 cm. Panc reas is not well seen. Examination is limited due to bowel gas. IMPRESSION: 1. There is heterogeneous and slightly irregular. Post could represent early cirrhosis. Recanalizatio n umbilical vein. 2. Splenomegaly. 3. Reversal of flow in the portal vein may be associated with cirrhosis. 4. Bilateral kidneys show small cysts. Signer Name: Sameer Cox MD Signed: 10/09/2020 5:41 PM Workstation Name: [id number]
[2020-10-10] MEDS: INSULIN REGULAR, HUMAN 100 UNITS/1 ML SUB-Q SCH ×2 (00:46→08:47)
[2020-10-10 06:59] LABS: Blood Urea Nitrogen 9 mg/dL (9-20); Hemolysis Index 7
[2020-10-10 07:01] LABS: BUN/Creatinine Ratio 18
--- NOTE | 2020-10-10 07:54 | Discharge Summary ---
<KLAUDIA PARRISH - Last Filed: 10/10/20 09:22> Providers - Providers Date of Admission: 10/08/20 13:54 Attending physician: CAMI KAM Primary care physician: MACHINE CLIPPER Hospitalization Condition: Stable Hospital course: This is a 49 YO Male with DM, CVA, Anxiety, HLD, Obesity who presented to the emergency department on 10/08 with redness and pain to his right lower extremity over the past 1 day. Patient was found to have right lower extremity cellulitis complicated by systemic vomiting response syndrome. Patient was initiated antibiotic therapy. On 10/08 his antibiotic therapy was changed to ceftriaxone. On 10/09 his cellulitis showed improvement. He received an abdominal ultrasound due to liver function tests being elevated though improved from admission. His abdominal ultrasound shows cirrhosis, splenomegaly, and bilateral kidneys show small cysts. Patient will be discharged with antibiotic therapy. Patient will need to follow-up with his primary care physician within 1 to 2 weeks of discharge. Alcohol cessation strongly encouraged. Assessment and Plan Sepsis -Presented with leukocytosis, lactic acidosis, tachycardia, right lower extremity cellulitis -Antibiotic therapy -10/07 blood cultures x2 no growth to date -S/p 2900 mL normal saline in the ED -S/p vancomycin in the ED -Discharged with antibiotic therapy Right lower extremity cellulitis -Antibiotic therapy -s/p MIVF -Supportive care -10/08 right lower extremity venous Doppler ultrasound shows no acute DVT or SVT -Discharged with antibiotic therapy for 9 days Thrombocytopenia -11/25/2016 platelets 84 -Presented with platelets of 62 -follow with Primary care physician Transaminitis -Presented with a total bilirubin of 2.7, AST 66, ALT 58, alkaline phos 79 -Patient denies any history of EtOH abuse (states he only drinks recreational) -10/09 abdominal ultrasound shows liver is heterogeneous and slightly irregular which could represent early cirrhosis, splenomegaly, reversal of flow in the portal vein which may be associated with cirrhosis, bilateral kidneys show small cysts -Discharge LFTs: tbili 1.90, AST 85, ALT 46, Alk Phos 79 Diabetes mellitus -No home antidiabetic regimen listed in home medication list -10/09 hemoglobin A1c 7.8 -Follow up with primary care physician within 1-2 weeks of discharge -Lifestyle and dietary changes encouraged Hypertension -Resume home antihypertensive regimen -Blood pressure monitoring her primary care physician instructions Anxiety -Supportive care Obesity -Encourage dietary and lifestyle modifications outpatient Hyperlipidemia (?) -Patient has a history of CVA, diabetes and is obese -10/09 lipid panel triglycerides 127, cholesterol 106, LDL 56, HDL 31 -No statin therapy listed on home medication list -ASCVD calculated at 8.7% -Encourage dietary changes and increase in physical activity -f/u with PCP CVA, old (2003) -Supportive care Lactic acidosis, resolved -Presented with a lactic acid of 2.7 serial lactic acids: 2.1, 2.7, 1.6 -s/p MIVF Hypokalemia, resolved -Presented with a potassium of 3.2 -S/p repletion -10/08 potassium 4 Leukocytosis, resolved -Presented with a WBC of 14.4 -Antibiotic therapy -Trend CBC -10/09 WBC 6 Hyponatremia, resolved -Presented with a sodium of 129 -Seems to be chronic form previous visits -Discharge sodium is 138 Disposition: DC-01 TO HOME OR SELFCARE Time spent for discharge: 35 Core Measure Documentation - Palliative Care Palliative Care/ Comfort Measures: Not Applicable - Core Measures Any of the following diagnoses?: history only Exam - Constitutional Vitals: Temp Pulse Resp BP Pulse Ox 97.9 F 84 16 154/101 97 10/09/20 22:15 10/09/20 22:15 10/09/20 22:15 10/09/20 22:15 10/09/20 22:18 Plan Activity: advance as tolerated Diet: low fat, low cholesterol, low salt, diabetic Wound: keep clean and dry Special Instructions: record daily BP diary, record blood sugar diary, smoking cessation Additional Instructions: Contact your primary care physician or report to nearest emergency department if you experience worsening symptoms. You will be discharged with antibiotic therapy. Dietary and lifestyle modifications strongly encouraged. Alcohol cessation strongly encouraged. You need to follow-up with your primary care physician within 1 to 2 weeks of discharge. Follow up with: [facility] [Outside] - 7 Days [facility] [Outside] - 7 Days [facility] [Outside] - 7 Days [facility] [Outside] - 7 Days [facility] [Outside] - 7 Days [facility],MD [Primary Care Provider] - 3-5 Days [facility] [Outside] - 7 Days Prescriptions: Amoxicillin/K Clav Tab [Augmentin 875 mg] 1 tab PO Q12HR 9 Days #18 tab lisinopriL [Zestril TAB] 10 mg PO QDAY #30 tab <CAMI KAM - Last Filed: 10/10/20 13:24> Providers - Providers Date of Admission: 10/08/20 13:54 Attending physician: CAMI KAM Primary care physician: MACHINE CLIPPER Exam - Constitutional Vitals: Temp Pulse Resp BP Pulse Ox 99.0 F 86 20 150/95 97 10/10/20 08:12 10/10/20 08:48 10/10/20 09:50 10/10/20 08:48 10/10/20 08:12
[2020-10-10 08:48] VITALS: BP 150/95
[2020-10-10] MEDS: LISINOPRIL 10 MG TAB PO SCH (08:48)
== END 2020-10-10 12:15 | disposition home or self-care (01) | DRG 872 ==
LOC: ED 10:08 → 3B 13:10 → OBSVTOIN 10-08 13:54
PROVIDERS: ADMIT Internal Medicine; ATTEND Internal Medicine
DX: A41.9 Sepsis, unspecified organism (principal); E87.1 Hypo-osmolality and hyponatremia; E87.2 Acidosis; L03.115 Cellulitis of right lower limb; I10 Essential (primary) hypertension; E11.9 Type 2 diabetes mellitus without complications; E78.5 Hyperlipidemia, unspecified; J45.909 Unspecified asthma, uncomplicated; F41.9 Anxiety disorder, unspecified; D69.6 Thrombocytopenia, unspecified; E87.6 Hypokalemia; R65.10 Systemic inflammatory response syndrome (SIRS) of non-infectious origin without acute organ dysfunction; E87.5 Hyperkalemia; D72.829 Elevated white blood cell count, unspecified; E66.9 Obesity, unspecified; Z83.3 Family history of diabetes mellitus; Z79.899 Other long term (current) drug therapy; Z79.891 Long term (current) use of opiate analgesic; Z79.01 Long term (current) use of anticoagulants; Z86.73 Personal history of transient ischemic attack (TIA), and cerebral infarction without residual deficits; Z82.49 Family history of ischemic heart disease and other diseases of the circulatory system; Z68.31 Body mass index [BMI] 31.0-31.9, adult
CPT/HCPCS: 36415; 76700; 80048; 80053; 80061; 82140; 82962; 83036; 84145; 85025; 85027; 87040; 96365; 96366; G0378; J0360; J0692; J0696; J1815; J2405; J3370; J7030; J7040; Q0162